=== PATIENT | male | born 2000 | race Two or more races ===

== ENCOUNTER 2022-03-15 23:02 | Emergency (ER) | payer OTHER ==
[~2022-03-15] VITALS: Ht 180.3 cm; Wt 65.3 kg
[2022-03-15] MEDS ORDERED: [UNRECOGNIZED DRUG - OTHER] (23:19)
[2022-03-16] MEDS ORDERED: CENTANY30 GM TOP (00:41)
[2022-03-16] MEDS ORDERED: CEPHALEXIN500 MG PO (00:41)
== END 2022-03-16 00:52 | disposition home or self-care (01) ==
LOC: ER 23:02
DX: N47.1 Phimosis (principal)

== ENCOUNTER 2022-07-08 00:20 | Emergency (ER) | payer OTHER ==
[~2022-07-08] VITALS: Ht 180.3 cm; Wt 63.5 kg
[~2022-07-08 00:20] MED LIST: CENTANY30 GM TOP; CEPHALEXIN500 MG PO; [UNRECOGNIZED DRUG - OTHER]
[2022-07-08] MEDS ORDERED: SINGULAIR 10MG10 MG PO (06:33)
== END 2022-07-08 06:38 ==
LOC: ER 00:20
DX: T78.40XA Allergy, unspecified, initial encounter (principal); Z88.1 Allergy status to other antibiotic agents

== ENCOUNTER → 2022-09-22 | Emergency (ER) | payer OTHER ==
[~2022-09-22] VITALS: Ht 180.3 cm; Wt 62.1 kg
[~2022-09-22] MED LIST changes: +SINGULAIR 10MG10 MG PO
== END | disposition home or self-care (01) ==
LOC: ER 22:00
DX: R10.32 Left lower quadrant pain (principal); M54.9 Dorsalgia, unspecified; Z20.822 Contact with and (suspected) exposure to COVID-19; Z88.8 Allergy status to other drugs, medicaments and biological substances